=== PATIENT | male | born 1965 | race Two or more races ===

== ENCOUNTER 2018-05-01 20:08 | Emergency (ER) | payer OTHER, SELFPAY ==
[~2018-05-01] VITALS: Ht 160 cm; Wt 80.0 kg
[2018-05-01 20:16] VITALS: BP 151/93
== END 2018-05-01 21:23 | disposition home or self-care (01) ==
LOC: ED 21:00
DX: T24.501A Corrosion of first degree of unspecified site of right lower limb, except ankle and foot, initial encounter (principal); T21.55XA Corrosion of first degree of buttock, initial encounter; L03.317 Cellulitis of buttock; L03.115 Cellulitis of right lower limb; Y93.89 Activity, other specified; Y92.89 Other specified places as the place of occurrence of the external cause; Y99.8 Other external cause status
CPT/HCPCS: 99283